=== PATIENT | female | born 1995 | race Caucasian/White ===

== ENCOUNTER 2019-01-23 16:52 | Emergency (ER) | payer OTHER ==
[~2019-01-23] VITALS: Wt 99.8 kg
[2019-01-23] MEDS ORDERED: ACETAMINOPHEN 325 MG TAB PO STA (17:25)
[2019-01-23] MEDS ORDERED: ACET325T33 PO (19:13)
[2019-01-23 19:22] VITALS: BP 123/66; PULSE 82; RESP 18
--- NOTE | 2019-01-23 21:55 | ERD ---
ER Documentation Chief Complaint Chief Complaint ABD PAIN X 3 DAYS 3 WEEK DENIES BLEEDING HPI 23-year-old female presenting to the emergency department complaining of right- sided pelvic pain intermittently for the past 1 day. She reports she is approximately 3 weeks . Her last menstrual cycle was 12/27/2018. She is G2, P1. Pain is currently rated 5/10 in severity and constant. She denies any dysuria, vaginal bleeding, fevers, chills, or other symptoms at this time. ROS All systems reviewed and are negative except as per history of present illness. Medications Home Meds Active Scripts Acetaminophen* (Tylenol*) 325 Mg Tablet, 2 TAB PO Q6 PRN for PAIN AND OR EL EVATED TEMP, #20 TAB Prov:AAYUSH FLORES PA-C 01/23/19 Allergies Allergies: Coded Allergies: No Known Allergy (Unverified , 09/27/14) PMhx/Soc History of Surgery: Yes (RT LOWER LEG, C/S) Anesthesia Reaction: No Hx Neurological Disorder: No Hx Cardiac Disorders: No Hx Psychiatric Problems: No Hx Miscellaneous Medical Probl: No Hx Alcohol Use: No Hx Substance Use: No Hx Tobacco Use: No Smoking Status: Never smoker FmHx Family History: No diabetes Physical Exam Vitals Vital Signs Date Temp Pulse Resp B/P (MAP) Pulse Ox O2 O2 Flow FiO2 Time Delivery Rate 01/23/19 98.0 82 18 123/66 99 Room Air 19:22 (85) 01/23/19 98.0 92 18 123/66 99 16:53 (85) Physical Exam Const: No acute distress Head: Atraumatic Eyes: Normal Conjunctiva ENT: Normal External Ears, Nose and Mouth. Neck: Full range of motion. No meningismus. Resp: Clear to auscultation bilaterally Cardio: Regular rate and rhythm, no murmurs Abd: Soft, non tender, non distended. Normal bowel sounds. No rebound tenderness or guarding. No McBurney's point tenderness. Right-sided pelvic tenderness on palpation. Skin: No petechiae or rashes Ext: No cyanosis, or edema Neur: Awake and alert Psych: Normal Mood and Affect Result Diagram: 01/23/19 1736 01/23/19 1736 Results 24 hrs Laboratory Tests Test 01/23/19 17:34 01/23/19 17:36 Urine Color YELLOW Urine Clarity CLOUDY Urine pH 5.0 Urine Specific [place] 1.030 Urine Ketones NEGATIVE mg/dL Urine Nitrite NEGATIVE mg/dL Urine Bilirubin NEGATIVE mg/dL Urine Urobilinogen 1+ mg/dL Urine Leukocyte Esterase TRACE Aissatou/ul Urine Microscopic RBC 4 /HPF Urine Microscopic WBC 3 /HPF Urine Squamous Epithelial Cells MANY /HPF Urine Bacteria FEW /HPF Urine Mucus FEW /HPF Urine Hemoglobin 1+ mg/dL Urine Glucose NEGATIVE mg/dL Urine Total Protein NEGATIVE mg/dl White Blood Count 9.7 10^3/ul Red Blood Count 4.31 10^6/ul Hemoglobin 13.2 g/dl Hematocrit 38.0 % Mean Corpuscular Volume 88.2 fl Mean Corpuscular Hemoglobin 30.6 pg Mean Corpuscular Hemoglobin Concent 34.7 g/dl Red Cell Distribution Width 11.9 % Platelet Count 309 10^3/UL Mean Platelet Volume 11.6 fl Immature Granulocytes % 0.200 % Neutrophils % 60.9 % Lymphocytes % 31.3 % Monocytes % 4.5 % Eosinophils % 2.8 % Basophils % 0.3 % Nucleated Red Blood Cells % 0.0 /100WBC Immature Granulocytes # 0.020 10^3/ul Neutrophils # 5.9 10^3/ul Lymphocytes # 3.0 10^3/ul Monocytes # 0.4 10^3/ul Eosinophils # 0.3 10^3/ul Basophils # 0.0 10^3/ul Nucleated Red Blood Cells # 0.0 10^3/ul Sodium Level 139 mmol/L Potassium Level 3.8 mmol/L Chloride Level 106 mmol/L Carbon Dioxide Level 23 mmol/L Anion Gap 10 Blood Urea Nitrogen 11 mg/dl Creatinine 0.58 mg/dl Est Glomerular Filtrat Rate mL/min > 60 mL/min Glucose Level 180 mg/dl Calcium Level 9.2 mg/dl Total Bilirubin 0.4 mg/dl Direct Bilirubin 0.00 mg/dl Indirect Bilirubin 0.4 mg/dl Aspartate Amino Transf (AST/SGOT) 39 IU/L Alanine Aminotransferase (ALT/SGPT) 70 IU/L Alkaline Phosphatase 79 IU/L Total Protein 7.7 g/dl Albumin 4.3 g/dl Globulin 3.40 g/dl Albumin/Globulin Ratio 1.26 Beta HCG, Quantitative 429.0 mIU/ml Current Medications Medications Dose Sig/Jeni Start Time Status Last (Trade) Ordered Route PRN Stop Time Admin Dose Reason Admin 650 mg ONCE STAT 01/23/19 DC 01/23/19 Acetaminophen PO 17:25 18:01 (Tylenol 01/23/19 17:26 Tab) [place] [address] Radiology Main Line: [phone] DIAGNOSTIC IMAGING REPORT Patient: KLEBER LEZAMA : 1995 Age: 23 Sex: F MR #: [id number] DOS: 01/23/19 1725 Ordering MD: AAYUSH FLORES PA-C Location: [facility] Room/Bed: PROCEDURE: US OB. CLINICAL INDICATION: Pelvic pain. TECHNIQUE: Multiple sonographic images of the pelvis were obtained. Transabdominal and transvaginal views of the pelvis are available for review. The images were reviewed on a PACS workstation. COMPARISON: No prior studies are available for comparison. FINDINGS: The uterus measures 7.3 x 4.3 x 4.5 cm. Uterus is mildly heterogeneous with possible 2.8 x 1.9 x 1.5 cm fibroid at the anterior wall. Possible early i ntrauterine gestational sac is identified. Gestational sac size is 0.13 cm corresponding to 4 weeks 4 days. No definite embryonic pole or cardiac activity is identified. The right ovary measures 19.6 cc in volume with a 1.5 cm luteal cyst. The left ovary measures 5.8 cc in volume. There is normal flow demonstrated both ovaries. . No subchorionic hemorrhage is identified. The adnexa are unremarkable. There is no free fluid. IMPRESSION: 1. Intrauterine gestational sac dating 4 weeks 4 days by mean sac diameter. No definite embryonic pole or cardiac activity is seen at this time. This may represent a normal early intrauterine . Recommend follow-up. 2. 2.8 cm anterior uterine fibroid. 3. No adnexal masses or free fluid in the pelvis. RPTAT: QQ .Anirudh Montgomery MD, Date Time Electronically viewed and signed by .Anirudh Montgomery MD, on 01/23/2019 18:57 .L/ CC: AAYUSH FLORES PA-C [phone] Procedures/MDM 23-year-old female presented to the emergency department complaining of right- sided pelvic pain. She reports she is 3 weeks . Obstetrics ultrasound showed an intrauterine gestational sac without evidence of pole or heartbeat. Beta hCG was consistent with term of . No adnexal masses were noted. History, physical examination, work-up is most consistent with early intrauterine and pelvic pain of unclear etiology. Low suspicion for ectopic , tubo-ovarian abscess, septic , PID, ovarian torsion, or other emergencies. The patient is stable and appropriate for discharge and further follow-up with her primary care physician and [facility] physician as an outpatient. She agreed with the diagnosis, plan, need for follow-up, return precautions. She is improved during her ED course. Departure Diagnosis: Primary Impression: Pelvic pain complicating Trimester: first trimester Qualified Codes: O26.891 - Other specified related conditions, first trimester; R10.2 - Pelvic and perineal pain Condition: Fair Patient Instructions: Pelvic Pain In : Unclear (2-3 Trimester) Referrals: COMMUNITY CLINICS YOU HAVE RECEIVED A MEDICAL SCREENING EXAM AND THE RESULTS INDICATE THAT YOU DO NOT HAVE A CONDITION THAT REQUIRES URGENT TREATMENT IN THE EMERGENCY DEPARTMENT. FURTHER EVALUATION AND TREATMENT OF YOUR CONDITION CAN WAIT UNTIL YOU ARE SEEN IN YOUR DOCTORS OFFICE WITHIN THE NEXT 1-2 DAYS. IT IS YOUR RESPONSIBILITY TO MAKE AN APPOINTMENT FOR FOLOW-UP CARE. IF YOU HAVE A PRIMARY DOCTOR --you should call your primary doctor and schedule an appointment IF YOU DO NOT HAVE A PRIMARY DOCTOR YOU CAN CALL OUR PHYSICIAN REFERRAL HOTLINE AT IF YOU CAN NOT AFFORD TO SEE A PHYSICIAN YOU CAN CHOSE FROM THE FOLLOWING FORMERLY [facility] [address] [facility] [address] [facility]. [facility] [address] [facility] [address] [facility] [address] [facility] [facility] [address] [employer] [address] [facility] [address] [place] [address]ABUSLEME [facility] [address] [place] [address] [address] [place] [address] [place] [address] DR TIJERINA, [facility] [address] [facility], [address], [facility] [address] [address] [facility] [address] [place] [address] [facility] [address] [place] [address] [address] [facility] [address] [address] [facility]. [address], [facility] [address] [address] MOELLER, [facility] [address] [facility]. [address], [facility] [address] [address] [facility] [address] [place] [address] Additional Instructions: SPECIALIST: YOU HAVE A MEDICAL CONDITION WHICH REQUIRES YOU TO SEE A SPECIALIST WITHIN THE NEXT 1-2 DAYS. PLEASE FOLLOW UP WITH YOUR PRIMARY PHYSICIAN FOR REFFERAL.IF YOU DO NOT HAVE A PRIMARY CARE PHYSICIAN AND/OR YOU CAN NOT AFFORD TO SEE A PHYSICIAN THE FOLLOWING RESOURCES HAVE BEEN SUPPLIED TO YOU. IT IS YOUR RESPONSIBILITY TO BE SEEN BY THE SPECIALIST : AAYUSH COLLINS PA-C January 23, 2019 21:55
== END 2019-01-23 19:24 | disposition home or self-care (01) ==
LOC: FTE 16:52
DX: O26.891 Other specified pregnancy related conditions, first trimester (principal); R10.2 Pelvic and perineal pain; Z3A.01 Less than 8 weeks gestation of pregnancy
CPT/HCPCS: 76801; 76817; 80053; 81001; 84702; 85025; Z7502; Z7610

== ENCOUNTER 2019-02-03 18:51 | Emergency (ER) | payer OTHER ==
[~2019-02-03] VITALS: Wt 100.6 kg
[~2019-02-03 18:51] MED LIST: ACET325T33 PO
--- NOTE | 2019-02-03 20:09 | ERD ---
ER Documentation Chief Complaint Chief Complaint vag bleeding started today; pressure on pelvic area; 6wks preg HPI 23-year-old female G4, P1 with EGA approximately 6 weeks by LMP 12/21/2018, presents to the emergency department, complaining of 1 day with vaginal bleeding, described as spotting, associated with mild pelvic pressure. Patient denies fever, no chills, no abdominal pain, no nausea or vomiting. The patient has established care at [facility] ROS All systems reviewed and are negative except as per history of present illness. Medications Home Meds Active Scripts Acetaminophen* (Tylenol*) 325 Mg Tablet, 2 TAB PO Q6 PRN for PAIN AND OR ELEVATE D TEMP, #20 TAB Prov:AAYUSH FLORES PA-C 01/23/19 Allergies Allergies: Coded Allergies: No Known Allergy (Unverified , 09/27/14) PMhx/Soc History of Surgery: Yes (RT LOWER LEG, C/S) Anesthesia Reaction: No Hx Neurological Disorder: No Hx Cardiac Disorders: No Hx Psychiatric Problems: No Hx Miscellaneous Medical Probl: No Hx Alcohol Use: No Hx Substance Use: No Hx Tobacco Use: No Smoking Status: Never smoker FmHx Family History: diabetes; No coronary disease Physical Exam Vitals Vital Signs Date Temp Pulse Resp B/P (MAP) Pulse Ox O2 O2 Flow FiO2 Time Delivery Rate 02/03/19 98.6 80 16 124/57 98 Room Air 21:58 (79) 02/03/19 98.5 90 20 99 19:01 Physical Exam Const: No acute distress Head: Atraumatic Eyes: Normal Conjunctiva ENT: Normal External Ears, Nose and Mouth. Neck: Full range of motion. No meningismus. Resp: Clear to auscultation bilaterally Cardio: Regular rate and rhythm, no murmurs Abd: Soft, non tender, non distended. Normal bowel sounds Skin: No petechiae or rashes Back: No midline or flank tenderness Ext: No cyanosis, or edema Neur: Awake and alert Psych: Normal Mood and Affect Result Diagram: 02/03/192012 Results 24 hrs Laboratory Tests Test 02/03/19 20:13 White Blood Count 9.8 10^3/ul Red Blood Count 4.43 10^6/ul Hemoglobin 13.5 g/dl Hematocrit 38.8 % Mean Corpuscular Volume 87.6 fl Mean Corpuscular Hemoglobin 30.5 pg Mean Corpuscular Hemoglobin Concent 34.8 g/dl Red Cell Distribution Width 12.1 % Platelet Count 262 10^3/UL Mean Platelet Volume 11.4 fl Immature Granulocytes % 0.300 % Neutrophils % 58.5 % Lymphocytes % 32.4 % Monocytes % 5.3 % Eosinophils % 3.2 % Basophils % 0.3 % Nucleated Red Blood Cells % 0.0 /100WBC Immature Granulocytes # 0.030 10^3/ul Neutrophils # 5.7 10^3/ul Lymphocytes # 3.2 10^3/ul Monocytes # 0.5 10^3/ul Eosinophils # 0.3 10^3/ul Basophils # 0.0 10^3/ul Nucleated Red Blood Cells # 0.0 10^3/ul Urine Color YELLOW Urine Clarity SLIGHTLY CLOUDY Urine pH 5.0 Urine Specific [place] 1.020 Urine Ketones NEGATIVE mg/dL Urine Nitrite NEGATIVE mg/dL Urine Bilirubin NEGATIVE mg/dL Urine Urobilinogen NEGATIVE mg/dL Urine Leukocyte Esterase TRACE Aisstaou/ul Urine Microscopic RBC 3 /HPF Urine Microscopic WBC 1 /HPF Urine Squamous Epithelial Cells FEW /HPF Urine Hemoglobin 1+ mg/dL Urine Glucose NEGATIVE mg/dL Urine Total Protein NEGATIVE mg/dl Beta HCG, Quantitative 9709.3 mIU/ml Patient: KLEBER LEZAMA : 1995 Age: 23 Sex: F MR #: [id number] DOS: 02/03/192007 Ordering MD: LEONARD BAUTISTA MD Location: FTE Room/Bed: PROCEDURE: US OB. CLINICAL INDICATION: Vaginal spotting TECHNIQUE: Transabdominal and transvaginal views of the pelvis are available for review. COMPARISON: US PELVIS 01/23/2019 FINDINGS: There is a single intrauterine gestation with the crown-rump length measuring 0.2 cm and the gestational sac measures 1.2 cm, corresponding to a gestational age of 5 weeks and 6 days. The yolk sac measures 4 mm. The heart rate is noted at 105 bpm. The ovaries are normal in size and echogenicity. Normal Doppler flow is identified in both ovaries. The right ovary measures 4.7 x 2.8 x 2.9 cm. The left ovary measures 2.6 x 1.9 x 2.9 cm. There is no free fluid. The previously seen fibroid was not identified in the current study. RPTAT: AA IMPRESSION: Single live intrauterine with an estimated gestational age of 5 weeks and 6 days, based on ultrasound measurements. NABILA based on ultrasound measurements is 09/30/19. bradycardia may be due to early phase of gestation. Procedures/MDM Vital signs stable, Physical exam unremarkable. Differential diagnosis include but not limited to: UTI, threatening , incomplete versus complete a bortion, ectopic , physiologic implantation bleeding, molar . Physical examination and clinical presentation most likely consistent with threatening . During the ED course the patient remained hemodynamically stable and asymptomatic. Results and clinical impression discussed with patient who agrees with management. The patient is stable to be treated outpatient and will be discharged home with close monitoring and follow-up in 2 days with her primary physician. Bed rest and pelvic rest recommended until further medical evaluation. The patient was instructed regarding the outcomes and the potential complications like severe bleeding and . If the patient presents severe bleeding or pain, she was instructed to return to the hospital immediately. Disclaimer: Inadvertent spelling and grammatical errors are likely due to EHR/dictation software use and do not reflect on the overall quality of patient care. Also, please note that the electronic time recorded on this note does not necessarily reflect the actual time of the patient encounter. Departure Diagnosis: Primary Impression: Vaginal bleeding in patient at less than 20 weeks gestation Condition: Stable Patient Instructions: Bleeding During Early Additional Instructions: Thank you very much for allowing us to participate in your care. Your health and safety is our top priority at [facility]. The evaluation in the emergency department has been done to rule out an acute emergency. Chronic, [id number] conditions may have not been evaluated; therefore, you need to follow up with a primary care provider in the next 48h. If symptoms persist, worsen or new symptoms develop, then patient should return to the ED immediately. Call your primary care doctor TOMORROW for an appointment during the next 2-4 days and bring all the information provided. Have prescriptions filled and follow precisely the directions on the label. If the symptoms get worse and your provider is unavailable, return to the Emergency Department immediately. LEONARD BAUTISTA MD Feb 03, 2019 20:09
[2019-02-03 21:58] VITALS: BP 124/57; PULSE 80; RESP 16
== END 2019-02-03 21:58 | disposition home or self-care (01) ==
LOC: FTE 18:51
DX: O20.9 Hemorrhage in early pregnancy, unspecified (principal); R10.2 Pelvic and perineal pain; Z3A.01 Less than 8 weeks gestation of pregnancy
CPT/HCPCS: 36415; 76801; 76817; 81001; 84702; 85025; Z7502

== ENCOUNTER 2019-02-12 23:15 | Emergency (ER) | payer OTHER ==
[~2019-02-12] VITALS: Ht 157.5 cm; Wt 101.3 kg
[2019-02-12 23:28] VITALS: Ht 157.5 cm; Wt 101.3 kg
[2019-02-13] MEDS ORDERED: ACETAMINOPHEN 500 MG TAB PO STA (01:32)
--- NOTE | 2019-02-13 01:32 | ERD ---
ER Documentation Chief Complaint Chief Complaint vaginal bleeding/abd pain x 30 min. states 8 weeks HPI This is a 23-year-old female presents emergency department with complaints of vaginal bleeding and pelvic pain 30 minutes prior to arrival here in the emergency department. Patient stated that she was in the shower, noticed a minimal amount of blood from her vaginal area. Stated that she has seen her OB, Shona Mcnamara last February 10, 2019. LMP: 12/20/2017. NABILA: 09/27/2019. G4, M1. Denies headache, head injury, loss of consciousness, dizziness, neck pain, neck stiffness, throat pain, difficulty swallowing, difficulty breathing lying flat, shoulder pain, chest pain, back pain, nausea, vomiting, constipation, diarrhea, urinary symptoms, loss of bowel and bladder control, trauma, injury, falls, difficulty walking due to pain, numbness or tingling sensation, calf pain, recent travel, recent major surgery in the last 3 weeks, calf pain, recent long travel, recent exposure to any illness, recent antibiotic use in the last 3 months, fever, chills, seizures. Past medical history: Asthma. Medication: vitamins. Surgical history: x1. Social: Denies smoking, use of alcoholic beverages, use of illegal drugs. ROS All systems reviewed and are negative except as per history of present illness. Medications Home Meds Active Scripts Vit No.124/Iron/FA ( Vitamin Tablet) 1 Each Tablet, 1 EACH PO DAILY, #30 TAB Prov:PASILABAN,KHANHAR F 02/13/19 Acetaminophen* (Tylophen*) 500 Mg Capsule, 1 CAP PO Q6H PRN for PAIN AND OR ELEVATED TEMP, #20 CAP Prov:PASILABAN,KHANHAR F 02/13/19 Acetaminophen* (Tylenol*) 325 Mg Tablet, 2 TAB PO Q6 PRN for PAIN AND OR ELEVATED TEMP, #20 TAB Prov:AAYUSH FLORES PA-C 01/23/19 Allergies Allergies: Coded Allergies: No Known Allergy (Unverified , 09/27/14) PMhx/Soc History of Surgery: Yes () Anesthesia Reaction: No Hx Neurological Disorder: No Hx Respiratory Disorders: Yes (Asthma) Hx Cardiac Disorders: Yes (Gestational HTN) Hx Psychiatric Problems: No Hx Miscellaneous Medical Probl: No Hx Alcohol Use: No Hx Substance Use: No Hx Tobacco Use: No Smoking Status: Never smoker Physical Exam Vitals Vital Signs Date Temp Pulse Resp B/P (MAP) Pulse Ox O2 O2 Flow FiO2 Time Delivery Rate 02/13/19 98.7 70 18 132/83 99 Room Air 04:01 (99) 02/12/19 97.7 84 18 144/64 100 23:28 (90) Physical Exam Const: No acute distress Head: Atraumatic Eyes: Normal Conjunctiva ENT: Normal External Ears, Nose and Mouth. Neck: Full range of motion. No meningismus. Resp: Clear to auscultation bilaterally Cardio: Regular rate and rhythm, no murmurs Abd: Soft, non tender, non distended. Normal bowel sounds. Negative Erickson sign. Negative Gakona sign (heel jar test). Negative psoas sign. Negative Rovsing sign. No CVA tenderness. Skin: No petechiae or rashes. Color appears normal for ethnicity. No skin tenting. No signs of severe dehydration. Back: No midline or flank tenderness Ext: No cyanosis, or edema Neur: Awake and alert. No neurological deficits. Psych: Normal Mood and Affect Result Diagram: 02/13/19 0152 02/13/19 0152 Results 24 hrs Laboratory Tests Test 02/13/19 01:52 White Blood Count 11.4 10^3/ul Red Blood Count 4.24 10^6/ul Hemoglobin 12.9 g/dl Hematocrit 37.3 % Mean Corpuscular Volume 88.0 fl Mean Corpuscular Hemoglobin 30.4 pg Mean Corpuscular Hemoglobin Concent 34.6 g/dl Red Cell Distribution Width 12.0 % Platelet Count 256 10^3/UL Mean Platelet Volume 11.6 fl Immature Granulocytes % 0.300 % Neutrophils % 55.2 % Lymphocytes % 34.8 % Monocytes % 6.3 % Eosinophils % 3.0 % Basophils % 0.4 % Nucleated Red Blood Cells % 0.0 /100WBC Immature Granulocytes # 0.030 10^3/ul Neutrophils # 6.3 10^3/ul Lymphocytes # 4.0 10^3/ul Monocytes # 0.7 10^3/ul Eosinophils # 0.3 10^3/ul Basophils # 0.0 10^3/ul Nucleated Red Blood Cells # 0.0 10^3/ul Prothrombin Time 11.6 Sec Prothrombin Time Ratio 0.9 INR International Normalized Ratio 0.84 Activated Partial Thromboplast Time 29.9 Sec Urine Color YELLOW Urine Clarity SLIGHTLY CLOUDY Urine pH 7.0 Urine Specific [place] 1.017 Urine Ketones NEGATIVE mg/dL Urine Nitrite NEGATIVE mg/dL Urine Bilirubin NEGATIVE mg/dL Urine Urobilinogen NEGATIVE mg/dL Urine Leukocyte Esterase NEGATIVE Aissatou/ul Urine Microscopic RBC 13 /HPF Urine Microscopic WBC 1 /HPF Urine Squamous Epithelial Cells FEW /HPF Urine Amorphous Crystals FEW /HPF Urine Hemoglobin 2+ mg/dL Urine Glucose NEGATIVE mg/dL Urine Total Protein NEGATIVE mg/dl Sodium Level 139 mmol/L Potassium Level 4.2 mmol/L Chloride Level 104 mmol/L Carbon Dioxide Level 27 mmol/L Anion Gap 8 Blood Urea Nitrogen 11 mg/dl Creatinine 0.60 mg/dl Est Glomerular Filtrat Rate mL/min > 60 mL/min Glucose Level 119 mg/dl Calcium Level 9.9 mg/dl Total Bilirubin 0.3 mg/dl Direct Bilirubin 0.00 mg/dl Indirect Bilirubin 0.3 mg/dl Aspartate Amino Transf (AST/SGOT) 27 IU/L Alanine Aminotransferase (ALT/SGPT) 48 IU/L Alkaline Phosphatase 62 IU/L Total Protein 7.8 g/dl Albumin 4.2 g/dl Globulin 3.60 g/dl Albumin/Globulin Ratio 1.16 Amylase Level 68 U/L Lipase 60 U/L Beta HCG, Quantitative 00194.0 mIU/ml Current Medications Medications Dose Sig/Jeni Start Time Status Last (Trade) Ordered Route PRN Stop Time Admin Dose Reason Admin 500 mg ONCE STAT 02/13/19 DC 02/13/19 Acetaminophen PO 01:32 02:01 (Tylenol 02/13/19 01:36 Tab) Procedures/MDM Diagnostic tests: Urinalysis: Reviewed. Culture urine: Sent. Type and Rh: O+. Beta hCG quantitative: 18 324. Blood works: Reviewed. OB ultrasound: Single live intrauterine gestation of approximately 6 weeks and 6 days with small subchorionic hemorrhage. The estimated date of delivery is October 03, 2019. Right ovarian cyst. Treatment: Tylenol p.o. Re-evaluation: Denies chest pain, back pain, abdominal pain, pelvic pain, vaginal bleeding. Negative Erickson sign. Negative Jania sign (heel jar test). Negative psoas sign. Negative Rovsing sign. No CVA tenderness. Color appears normal for ethnicity. No skin tenting but no signs of severe dehydration. Stated that she feels much better examined that she is ready to go home. Differential diagnosis I have low suspicion for sepsis, pancreatitis, cholecystitis, diverticulitis, bowel obstruction, pyelonephritis, nephrolithiasis, septic stone, obstructing kidney stones, demise, miscarriage, hemorrhaging. Final diagnosis: Threatened miscarriage. Prescription: Tylenol. vitamins. Follow-up with OB in the next 24-48 hours to do another blood works and/or ultrasound. Come back in 24 to 48 hours here in the emergency department for a repeat blood works and possible ultrasounds. Come back here in the emergency department for any new symptoms or any worsening symptoms. All questions and concerns were answered. Patient and family members verbalized understanding and agreed with plan of care. Hemodynamically stable on discharge. Departure Diagnosis: Primary Impression: Vaginal bleeding in patient at less than 20 weeks gestation Additional Impression: Threatened miscarriage Condition: Stable Additional Instructions: Follow-up with OB in the next 24-48 hours to do another blood works and/or ultrasound. Come back in 24 to 48 hours here in the emergency department for a repeat blood works and possible ultrasounds. Come back here in the emergency department for any new symptoms or any worsening symptoms. MAMIE HAMMER Feb 13, 2019 01:32
[2019-02-13] MEDS ORDERED: ACET500C5 PO (03:38)
[2019-02-13] MEDS ORDERED: PREN-93 PO (03:39)
[2019-02-13 04:01] VITALS: BP 132/83; PULSE 70; RESP 18
== END 2019-02-13 04:02 | disposition home or self-care (01) ==
LOC: FTE 23:15
DX: O20.0 Threatened abortion (principal); O99.511 Diseases of the respiratory system complicating pregnancy, first trimester; R10.2 Pelvic and perineal pain; Z3A.08 8 weeks gestation of pregnancy
CPT/HCPCS: 76801; 76817; 80053; 81001; 82150; 83690; 84702; 85025; 85610; 85730; 86900; 86901; 87086; Z7502; Z7610

== ENCOUNTER 2019-03-01 20:33 | Emergency (ER) | payer OTHER ==
[~2019-03-01] VITALS: Ht 157.5 cm; Wt 102.0 kg
[~2019-03-01 20:33] MED LIST changes: +ACET500C5 PO; +PREN-93 PO
[2019-03-01 21:29] VITALS: Ht 157.5 cm; Wt 102.0 kg
[2019-03-02] MEDS ORDERED: HYDROCODONE/APAP (5/325) TAB PO ONE (01:00)
--- NOTE | 2019-03-02 01:59 | ERD ---
ER Documentation Chief Complaint Chief Complaint C/O PELVIC PAIN, BACK PAIN AND VB SINCE 3P, 10 WEEKS PREG HPI 23-year-old female about 10 weeks presenting with mild left lower pel anuj pain with associated vaginal spotting that started today. She states that she slipped in the bathroom and fell onto her buttocks. After which she noticed some spotting. She went to see her OB who sent her to the ER for ultrasound. She is complaining of some buttock soreness, 7 out of 10 in intensity. No associated numbness or weakness in the lower extremities. The pain is aching, worse with touch, no alleviating factors. She took Tylenol prior to arrival. No change in urinary or bowel habits. She only complains of minimal pelvic pain and is concerned about the spotting. ROS All systems reviewed and are negative except as per history of present illness. Medications Home Meds Active Scripts Vit No.124/Iron/FA ( Vitamin Tablet) 1 Each Tablet, 1 EACH PO DAILY, #30 TAB Prov:CHRISTLAURENKHANHAR F 02/13/19 Acetaminophen* (Tylophen*) 500 Mg Capsule, 1 CAP PO Q6H PRN for PAIN AND OR ELEVATED TEMP, #20 CAP Prov:DANIELILABANKHANHAR F 02/13/19 Acetaminophen* (Tylenol*) 325 Mg Tablet, 2 TAB PO Q6 PRN for PAIN AND OR ELEVATED TEMP, #20 TAB Prov:AAYUSH FLORES PA-C 01/23/19 Allergies Allergies: Coded Allergies: No Known Allergy (Unverified , 09/27/14) PMhx/Soc History of Surgery: Yes () Anesthesia Reaction: No Hx Neurological Disorder: No Hx Respiratory Disorders: Yes (Asthma) Hx Cardiac Disorders: Yes (Gestational HTN) Hx Psychiatric Problems: No Hx Miscellaneous Medical Probl: No Hx Alcohol Use: No Hx Substance Use: No Hx Tobacco Use: No Smoking Status: Never smoker FmHx Family History: No diabetes Physical Exam Vitals Vital Signs Date Temp Pulse Resp B/P (MAP) Pulse Ox O2 O2 Flow FiO2 Time Delivery Rate 03/02/19 98.0 67 16 127/68 98 Room Air 02:40 (87) 03/02/19 68 17 132/68 98 Room Air 00:32 (89) 03/01/19 99.2 79 20 142/63 98 21:29 (89) Physical Exam Const: No acute distress Head: Atraumatic Eyes: Normal Conjunctiva ENT: Normal External Ears, Nose and Mouth. Neck: Full range of motion. No meningismus. Resp: Clear to auscultation bilaterally Cardio: Regular rate and rhythm, no murmurs Abd: Soft, minimal tenderness to deep palpation in the left pelvis. No rebound or guarding.Non distended. Normal bowel sounds Skin: No petechiae or rashes Back: No midline or flank tenderness. Mild sacral tenderness and left buttock tenderness to palpation. No ecchymoses seen. Ext: No cyanosis, or edema Neur: Awake and alert Psych: Normal Mood and Affect Results 24 hrs Current Medications Medications Dose Sig/Jeni Start Time Status Last (Trade) Ordered Route PRN Stop Time Admin Dose Reason Admin 1 tab ONCE ONCE 03/02/19 DC 03/02/19 Acetaminophen PO 01:00 03/02/19 01:05 / 01:01 Hydrocodone Bitart ([place] (5/)) Procedures/MDM EMERGENT LABS AND DIAGNOSTIC STUDIES: Radiology Results as interpreted by Radiology below were reviewed by Valerie Jacob MD: Pelvic ultrasound: IMPRESSION: 1. Single live intrauterine gestation of 8 weeks 3 days menstrual age by ultrasound dates. 2. Expected date of delivery is 10/09/2019. Initial Nursing notes reviewed. Previous Medical Records requested via the Electronic Health Record. EMERGENCY DEPARTMENT COURSE / MEDICAL DECISION MAKING: Patient is presenting with vaginal spotting As well as low back and buttock pain after a fall. Vitals are stable. Ultrasound showed normal IUP. She was treated with [place] for her pain. She is neurovascularly intact. I have a low suspicion for acute spinal fracture. Feel the patient is stable for discharge with continued follow-up. Threatened precautions given. Follow-up with OB recommended for tomorrow. Return precautions discussed Patient's blood pressure was elevated (>120/80) but appears stable without evidence of hypertensive emergency or urgency. The patient was counseled about the risks of hypertension and urged to pursue outpatient monitoring and therapy within a week with their primary care physician. Departure Diagnosis: Primary Impression: Threatened miscarriage Additional Impressions: Acute low back pain due to trauma Fall from ground level Condition: Stable KEELEY JACOB MD Mar 02, 2019 01:59
[2019-03-02 02:40] VITALS: BP 127/68; PULSE 67; RESP 16
== END 2019-03-02 02:40 | disposition home or self-care (01) ==
LOC: FTE 20:33 → E/R 03-02 02:40
DX: O20.0 Threatened abortion (principal); O99.511 Diseases of the respiratory system complicating pregnancy, first trimester; J45.909 Unspecified asthma, uncomplicated; O99.89 Other specified diseases and conditions complicating pregnancy, childbirth and the puerperium; M54.5 Low back pain; Z3A.08 8 weeks gestation of pregnancy
CPT/HCPCS: 36415; 76801; 86900; 86901; Z7502; Z7610

== ENCOUNTER 2019-03-24 00:14 | Emergency (ER) | payer OTHER ==
[~2019-03-24] VITALS: Ht 154.9 cm; Wt 101.7 kg
[~2019-03-24 00:14] MED LIST changes: +BACI28.34 TOP; +CEPH-443 PO; +GLYC1SUP92 PR
[2019-03-24 00:17] VITALS: Ht 154.9 cm; Wt 101.7 kg
[2019-03-24] MEDS ORDERED: ACETAMINOPHEN 325 MG TAB PO STA (01:24)
[2019-03-24] MEDS ORDERED: MAGNESIUM CITRATE 300 ML BTL PO ONE (01:30)
[2019-03-24] MEDS ORDERED: GLYCERIN (ADULT) SUPP PR ONE ×2 (03:30→04:00)
[2019-03-24 04:25] VITALS: BP 139/72; PULSE 77; RESP 18
--- NOTE | 2019-03-24 05:05 | ERD ---
ER Documentation Chief Complaint Chief Complaint CONSTIPATION X 2 DAYS. 13 WKS . HPI 23-year-old female who is reportedly 13 weeks presenting to the emergency department complaining of constipation since yesterday. Patient is also had left flank pain. She states she attempted to have bowel movement earlier but was unable to. She is also had some intermittent vaginal bleeding starting yesterday with associated pelvic pain. Pain is rated 3/10 severity. Other associated symptoms include 4 episodes of nonbilious and nonbloody vomiting today. She denies any fevers, chills, or other symptoms at this time. ROS All systems reviewed and are negative except as per history of present illness. Medications Home Meds Active Scripts Acetaminophen* (Tylenol*) 325 Mg Tablet, 2 TAB PO Q6 PRN for PAIN AND OR ELEVATED TEMP, #20 TAB Prov:AAYUSH FLORES PA-C 03/24/19 Glycerin* (Glycerin (Adult)*) 1 Each Supp.rect, 1 EACH IN DAILY PRN for CONSTIPATION, #5 SUPP.RECT Prov:AAYUSH FLORES PA-C 03/24/19 Vit No.124/Iron/FA ( Vitamin Tablet) 1 Each Tablet, 1 EACH PO DAILY, #30 TAB Prov:PASILABAN,KLAR F 02/13/19 Acetaminophen* (Tylophen*) 500 Mg Capsule, 1 CAP PO Q6H PRN for PAIN AND OR ELEVATED TEMP, #20 CAP Prov:PASILABAN,KLAR F 02/13/19 Acetaminophen* (Tylenol*) 325 Mg Tablet, 2 TAB PO Q6 PRN for PAIN AND OR ELEVATED TEMP, #20 TAB Prov:AAYUSH FLORES PA-C 01/23/19 Allergies Allergies: Coded Allergies: No Known Allergy (Unverified , 09/27/14) PMhx/Soc History of Surgery: Yes () Anesthesia Reaction: No Hx Neurological Disorder: No Hx Respiratory Disorders: Yes (Asthma) Hx Cardiac Disorders: Yes (Gestational HTN) Hx Psychiatric Problems: No Hx Miscellaneous Medical Probl: No Hx Alcohol Use: No Hx Substance Use: No Hx Tobacco Use: No Smoking Status: Never smoker FmHx Family History: No diabetes Physical Exam Vitals Vital Signs Date Temp Pulse Resp B/P (MAP) Pulse Ox O2 O2 Flow FiO2 Time Delivery Rate 03/24/19 98.5 77 18 139/72 98 04:25 (94) 03/24/19 97.5 86 16 134/89 98 00:17 (104) Physical Exam Const: No acute distress Head: Atraumatic Eyes: Normal Conjunctiva ENT: Normal External Ears, Nose and Mouth. Neck: Full range of motion. No meningismus. Resp: Clear to auscultation bilaterally Cardio: Regular rate and rhythm, no murmurs Abd: Soft, non tender, non distended. Normal bowel sounds. Mild tenderness palpation of the pelvic region. No rebound tenderness or guarding. No McBurney's point tenderness. Skin: No petechiae or rashes Back: Flank tenderness on the left. Ext: No cyanosis, or edema Neur: Awake and alert Psych: Normal Mood and Affect Result Diagram: 03/24/19 0135 03/24/19 0300 Results 24 hrs Laboratory Tests Test 03/24/19 01:35 03/24/19 03:00 White Blood Count 16.2 10^3/ul Red Blood Count 4.09 10^6/ul Hemoglobin 12.5 g/dl Hematocrit 36.3 % Mean Corpuscular Volume 88.8 fl Mean Corpuscular Hemoglobin 30.6 pg Mean Corpuscular Hemoglobin Concent 34.4 g/dl Red Cell Distribution Width 12.2 % Platelet Count 256 10^3/UL Mean Platelet Volume 11.7 fl Immature Granulocytes % 0.400 % Neutrophils % 80.0 % Lymphocytes % 13.7 % Monocytes % 4.6 % Eosinophils % 1.0 % Basophils % 0.3 % Nucleated Red Blood Cells % 0.0 /100WBC Immature Granulocytes # 0.060 10^3/ul Neutrophils # 13.0 10^3/ul Lymphocytes # 2.2 10^3/ul Monocytes # 0.7 10^3/ul Eosinophils # 0.2 10^3/ul Basophils # 0.1 10^3/ul Nucleated Red Blood Cells # 0.0 10^3/ul Urine Color YELLOW Urine Clarity CLEAR Urine pH 6.0 Urine Specific Julian 1.027 Urine Ketones NEGATIVE mg/dL Urine Nitrite NEGATIVE mg/dL Urine Bilirubin NEGATIVE mg/dL Urine Urobilinogen NEGATIVE mg/dL Urine Leukocyte Esterase NEGATIVE Aissatou/ul Urine Microscopic RBC 5 /HPF Urine Microscopic WBC 1 /HPF Urine Squamous Epithelial Cells FEW /HPF Urine Mucus FEW /HPF Urine Hemoglobin 2+ mg/dL Urine Glucose NEGATIVE mg/dL Urine Total Protein 1+ mg/dl Beta HCG, Quantitative 30001.0 mIU/ml Sodium Level 139 mmol/L Potassium Level 4.4 mmol/L Chloride Level 107 mmol/L Carbon Dioxide Level 21 mmol/L Anion Gap 11 Blood Urea Nitrogen 7 mg/dl Creatinine 0.53 mg/dl Est Glomerular Filtrat Rate mL/min > 60 mL/min Glucose Level 143 mg/dl Calcium Level 9.7 mg/dl Total Bilirubin 0.3 mg/dl Direct Bilirubin 0.00 mg/dl Indirect Bilirubin 0.3 mg/dl Aspartate Amino Transf (AST/SGOT) 24 IU/L Alanine Aminotransferase (ALT/SGPT) 38 IU/L Alkaline Phosphatase 69 IU/L Total Protein 7.0 g/dl Albumin 4.2 g/dl Globulin 2.80 g/dl Albumin/Globulin Ratio 1.50 Current Medications Medications Dose Sig/Jeni Start Time Status Last (Trade) Ordered Route PRN Stop Time Admin Dose Reason Admin 650 mg ONCE STAT 03/24/19 DC 03/24/19 Acetaminophen PO 01:24 01:40 (Tylenol 03/24/19 01:26 Tab) Magnesium 300 ml ONCE ONCE 03/24/19 DC 03/24/19 Citrate PO 01:30 01:40 (Citroma) 03/24/19 01:31 Glycerin 1 supp ONCE ONCE 03/24/19 Cancel (Glycerin IN 03:30 (Adult)) 03/24/19 03:31 Glycerin 1 supp ONCE ONCE 03/24/19 DC 03/24/19 (Glycerin IN 04:00 03:40 (Adult)) 03/24/19 04:01 [place] [address] Radiology Main Line: [phone] DIAGNOSTIC IMAGING REPORT Patient: KLEBER LEZAMA : 1995 Age: 23 Sex: F MR #: [id number] DOS: 03/24/19 0000 Ordering MD: AAYUSH FLORES PA-C Location: [facility] Room/Bed: PROCEDURE: ULTRASOUND OBSTETRICAL CLINICAL INDICATION: 23-year-old female with pelvic pain. TECHNIQUE: Multiple sonographic images of the pelvis were obtained. The images were reviewed on a PACS workstation. COMPARISON: Ultrasound OB March 02, 2019. FINDINGS: There is a single intrauterine gestation. The mean sac diameter is 5.16 cm. There is a pole present with a crown-rump length of 5.67 cm. This yields an estimated gestational age of 11 weeks and 6 days. The estimated date of delivery is October 07, 2019. Cardiac activity is present at 166 beats per minute. There is no evidence for free fluid. The ovaries were not visualized bilaterally. No adnexal masses are noted. IMPRESSION: 1. Single live intrauterine gestation of approximately 11 weeks 6 days. The estimated date of delivery is October 07, 2019. 2. The ovaries were not visualized. .Jean-Pierre Alvarez MD, Date Time Electronically viewed and signed by .Jean-Pierre Alvarez MD, MD on 03/24/2019 02:16 .M/ CC: AAYUSH FLORES PA-C [id number] [place] [address] Radiology Main Line: [phone] DIAGNOSTIC IMAGING REPORT Patient: KLEBER LZEAMA : 1995 Age: 23 Sex: F MR #: [id number] DOS: 03/24/19 0000 Ordering MD: AAYUSH FLORES PA-C Location: [facility] Room/Bed: PROCEDURE: Ultrasound kidneys CLINICAL INDICATION: Left flank pain TECHNIQUE: Multiple sonographic images of the kidneys were obtained. The images were reviewed on a PACS workstation. COMPARISON: None FINDINGS: Both the right and left kidneys measure 12.5 cm in length and demonstrate normal echotexture. No hydronephrosis, intrarenal calculus or abnormal perinephric fluid. Bladder: Decompressed and not clearly visualized. Additional findings: None. IMPRESSION: Unremarkable renal ultrasound. RPTAT: [facility]JBB x-Amish Bowns, Physician Date Time Electronically viewed and signed by Physician Mckayla on 03/24/2019 03:04 xB/ CC: AAYUSH FLORES PA-C [id number] Procedures/MDM 23-year-old female presents emergency department complaining of left flank pain, constipation, nausea, vomiting, and vaginal bleeding. Patient was administered Tylenol for pain with improvement of her symptoms. She was administered magnesium citrate without production of bowel movement. She was then administered a glycerin suppository with production of large bowel movement. She stated she felt significantly improved after the bowel movement. CBC: Leukocytosis with white blood cell count of 16.2. CMP: no e/o severe acidosis, alkalosis, renal failure, diabetic ketoacidosis, liver disease PT/INR: normal coagulation Urine: no e/o acute infection or hematuria Medical decision making: Patient is presenting with what appears to be threatened . Obstetrics ultrasound showed a live intrauterine with heart tones. Patient was also having constipation which was alleviated here with a glycerin suppository. I have low suspicion for acute surgical abdomen. I have low suspicion for bowel obstruction. Low suspicion for ectopic . Low suspicion for PID, sepsis, meningitis, septic stone, obstructive kidney stone, sepsis or other emergent process. Patient will be discharged home in stable condition with instructions to have 24 to 48-hour follow-up with her primary care physician and [facility] physician and return here for any concerning symptoms. She understands and agrees with the plan. Departure Diagnosis: Primary Impression: Vaginal bleeding in patient at less than 20 weeks ges... Additional Impressions: Nausea and vomiting Constipation Condition: Fair Patient Instructions: Bleeding During Early , Constipation (Adult) Additional Instructions: Call your primary care doctor TOMORROW for an appointment during the next 1-2 days.See the doctor sooner or return here if your condition worsens before your appointment time. AAYUSH FLORES PA-C Mar 24, 2019 05:05
== END 2019-03-24 04:26 | disposition home or self-care (01) ==
LOC: FTE 00:14
DX: O20.9 Hemorrhage in early pregnancy, unspecified (principal); O99.611 Diseases of the digestive system complicating pregnancy, first trimester; O21.9 Vomiting of pregnancy, unspecified; K59.00 Constipation, unspecified; R10.2 Pelvic and perineal pain; O99.52 Diseases of the respiratory system complicating childbirth; J45.909 Unspecified asthma, uncomplicated; Z3A.13 13 weeks gestation of pregnancy
CPT/HCPCS: 36415; 76775; 76805; 80053; 81001; 84702; 85025; 86900; 86901; 87086; Z7502; Z7610

== ENCOUNTER 2019-04-12 21:31 | Emergency (ER) | payer OTHER ==
[~2019-04-12] VITALS: Ht 152.4 cm; Wt 101.4 kg
[~2019-04-12 21:31] MED LIST changes: +MUPI22OI2 TOP
[2019-04-12 21:34] VITALS: Ht 152.4 cm; Wt 101.4 kg
[2019-04-13] MEDS ORDERED: ACETAMINOPHEN 325 MG TAB PO ONE
[2019-04-13] MEDS ORDERED: LIDOCAINE 1% (MDV) 20 ML INJ SC ONE
[2019-04-13 01:23] VITALS: BP 129/61; PULSE 67; RESP 18
== END 2019-04-13 01:24 | disposition home or self-care (01) ==
LOC: FTE 21:31
DX: O99.712 Diseases of the skin and subcutaneous tissue complicating pregnancy, second trimester (principal); L02.01 Cutaneous abscess of face; O99.512 Diseases of the respiratory system complicating pregnancy, second trimester; J45.901 Unspecified asthma with (acute) exacerbation; Z3A.16 16 weeks gestation of pregnancy
CPT/HCPCS: 10060; Z7502; Z7610

== ENCOUNTER 2019-04-15 20:39 | Emergency (ER) | payer OTHER ==
[~2019-04-15] VITALS: Ht 157.5 cm; Wt 102.0 kg
[~2019-04-15 20:39] MED LIST changes: -MUPI22OI2 TOP
[2019-04-15 20:44] VITALS: Ht 157.5 cm; Wt 102.0 kg
[2019-04-15] MEDS ORDERED: LIDOCAINE 2% (MDV) 20 ML INJ INJ ONE (22:00)
--- NOTE | 2019-04-15 22:01 | ERD ---
ER Documentation Chief Complaint Chief Complaint ABSCESS ON CHIN. HPI 23-year-old female currently 16 weeks who presents for wound check. Patient had I&D to abscess of left side of chin on the of this month. Patient states area has become more indurated, red and tender. Patient went to her PMD on the and was told that she would need further incision and drainage. She otherwise denies fevers, chills, nausea, vomiting, diarrhea or any other concerning symptoms. She has been taking antibiotics as prescribed. ROS All systems reviewed and are negative except as per history of present illness. Medications Home Meds Active Scripts Bacitracin* (Bacitracin Zinc Oint*) 28.35 Gm Oint, 1 APPLIC TOP BID, #1 TUB APPLI TO Prov:AAYUSH FLORES PA-C 04/13/19 Cephalexin* (Keflex*) 500 Mg Capsule, 500 MG PO TID for 7 Days, CAP Prov:AAYUSH FLORES PA-C 04/13/19 Acetaminophen* (Tylenol*) 325 Mg Tablet, 2 TAB PO Q6 PRN for PAIN AND OR ELEVATED TEMP, #20 TAB Prov:AAYUSH FLORES PA-C 03/24/19 Glycerin* (Glycerin (Adult)*) 1 Each Supp.rect, 1 EACH ND DAILY PRN for CONSTIPATION, #5 SUPP.RECT Prov:AAYUSH FLORES PA-C 03/24/19 Vit No.124/Iron/FA ( Vitamin Tablet) 1 Each Tablet, 1 EACH PO DAILY, #30 TAB Prov:PASILABANKLAR F 02/13/19 Acetaminophen* (Tylophen*) 500 Mg Capsule, 1 CAP PO Q6H PRN for PAIN AND OR ELEVATED TEMP, #20 CAP Prov:PASILABAN,KLAR F 02/13/19 Acetaminophen* (Tylenol*) 325 Mg Tablet, 2 TAB PO Q6 PRN for PAIN AND OR ELEVATED TEMP, #20 TAB Prov:AAYUSH FLORES PA-C 01/23/19 Allergies Allergies: Coded Allergies: No Known Allergy (Unverified , 09/27/14) PMhx/Soc History of Surgery: Yes () Anesthesia Reaction: No Hx Neurological Disorder: No Hx Respiratory Disorders: Yes (Asthma) Hx Cardiac Disorders: Yes (Gestational HTN) Hx Psychiatric Problems: No Hx Miscellaneous Medical Probl: No Hx Alcohol Use: No Hx Substance Use: No Hx Tobacco Use: No Smoking Status: Never smoker FmHx Family History: No diabetes, No coronary disease, No other Physical Exam Vitals Vital Signs Date Temp Pulse Resp B/P (MAP) Pulse Ox O2 O2 Flow FiO2 Time Delivery Rate 04/15/19 97.2 94 18 144/76 99 20:44 (98) Physical Exam I have reviewed the triage vital signs. Const: Well nourished, well developed, appears stated age Eyes: PERRL, no conjunctival injection HENT: NCAT, Neck supple without meningismus CV: RRR, Warm, well-perfused extremities RESP: CTAB, Unlabored respiratory effort GI: soft, non-tender, non-distended, no masses MSK: No gross deformities appreciated Skin: Warm, dry. No rashes, left-sided chin with area of redness induration, tender to touch, small dot of pus emanating Neuro: grossly non focal Psych: Appropriate mood and affect. Results 24 hrs Current Medications Medications Dose Sig/Jeni Start Time Status Last (Trade) Ordered Route PRN Stop Time Admin Dose Reason Admin Lidocaine 20 ml ONCE ONCE 04/15/19 DC (Xylocaine INJ 22:00 2% (Mdv) 20 04/15/19 22:01 ml) Procedures/MDM 23-year-old female presents for recheck status post I&D performed on April 12. Patient likely requires larger incision and repeat I&D given pain and induration to the area and closed wound. Advised to continue antibiotic treatment to completion. Tylenol for pain control. Abscess Incision and Drainage with irrigation by me: Location: Left underside of chin Anesthesia: Local 1% Lidocaine Technique: Irrigated. Disrupted loculations w/ instrumentation Packing: yes Complications: Neurovascularly intact post procedure 48 hour wound check. Scar minimization instructions given. Continue to take antibiotics as prescribed. Departure Diagnosis: Primary Impression: Abscess Condition: Stable Patient Instructions: Abscess, Incision And Drainage Additional Instructions: Call your primary care doctor TOMORROW for an appointment during the next 2-3 days.See the doctor sooner or return here if your condition worsens before your appointment time. Take prescribed antibiotics to completion. Return for wound check in 48 hours. JOSE R URIAS PA-C Apr 15, 2019 22:01
== END 2019-04-15 23:40 | disposition home or self-care (01) ==
LOC: FTE 20:39
DX: O99.712 Diseases of the skin and subcutaneous tissue complicating pregnancy, second trimester (principal); O10.012 Pre-existing essential hypertension complicating pregnancy, second trimester; L02.01 Cutaneous abscess of face; O99.512 Diseases of the respiratory system complicating pregnancy, second trimester; J45.909 Unspecified asthma, uncomplicated; Z3A.16 16 weeks gestation of pregnancy
CPT/HCPCS: 10060; Z7502; Z7610

== ENCOUNTER 2019-05-08 20:01 | Emergency (ER) | payer OTHER ==
[~2019-05-08] VITALS: Ht 157.5 cm; Wt 100.5 kg
[~2019-05-08 20:01] MED LIST changes: +MUPI22OI2 TOP
[2019-05-08 20:03] VITALS: BP 146/68; PULSE 87; RESP 19; Ht 157.5 cm; Wt 100.5 kg
== END 2019-05-08 21:35 | disposition home or self-care (01) ==
LOC: FTE 20:01
DX: O99.712 Diseases of the skin and subcutaneous tissue complicating pregnancy, second trimester (principal); L02.416 Cutaneous abscess of left lower limb; O99.512 Diseases of the respiratory system complicating pregnancy, second trimester; J45.909 Unspecified asthma, uncomplicated; Z3A.20 20 weeks gestation of pregnancy
CPT/HCPCS: 99283